=== PATIENT | female | born 1955 | race Caucasian/White ===

== ENCOUNTER → 2019-08-23 | Outpatient (CLI) | payer MEDICARE ==
--- NOTE | 2019-08-23 16:14 | REP ---
RIGHT RIB SERIES: Four views of the right ribs performed. No fracture or bone lesion is seen. An accompanying PA view of the chest is demonstrates no infiltrate, pneumothorax or pleural effusion. The heart is normal in size. There appears to be a small hiatal hernia. IMPRESSION: No evidence of right rib fracture. Electronically Signed by Ryan Manzano MD 08/23/2019 04:30 P
== END ==
LOC: M WUC 15:32
PROVIDERS: ATTEND Physician Assistant
DX: S20.211A Contusion of right front wall of thorax, initial encounter (principal); X58.XXXA Exposure to other specified factors, initial encounter; Y92.9 Unspecified place or not applicable